=== PATIENT | male | born 1950 | race Caucasian/White ===

== ENCOUNTER → 2023-11-08 10:02 | Outpatient (BNV) | payer MEDICARE, BC, SELFPAY | PROVIDERS: PCP Internal Medicine; Visit Provider Internal Medicine Medical Oncology | DX: D64.9 Anemia, unspecified (principal) | CPT/HCPCS: 99204; 99213 ==

== ENCOUNTER 2024-08-06 09:51 | Outpatient (REF) | payer MEDICARE, BC, SELFPAY ==
[2024-08-06 10:10] LABS: MANUAL DIFF FLAG NO
[2024-08-06 10:28] LABS: Basophils Percent Auto 0.3 % (0-2); Eosinophils Percent Auto 0.6 % (0-4); Hemoglobin 11.8 g/dl (14.0-18.0); Imm Gran Abs Auto 0.07 X10*3/uL (0.00-0.03); Lymphocytes Percent Auto 13.6 % (20-40); Mean Corpuscular HGB Conc 33.7 g/dl (31.0-36.0); Mean Corpuscular Hemoglobin 31.1 pg (27.0-33.0); Mean Corpuscular Volume 92.1 fL (80.0-98.0); Mean Platelet Volume 9.4 fL (9.4-12.4); Monocytes Percent Auto 14.4 % (2-11); Neutrophils Percent Auto 70.1 % (45-73); Platelet Count 257 X10*3/uL (160-400); White Blood Count 7.1 X10*3/uL (4.8-10.8)
[2024-08-06 10:33] LABS: INTERNATIONAL NORM RATIO 0.9 (0.9-1.1); Prothrombin Time 11.1 SEC (11.1-13.3)
[2024-08-06 11:01] LABS: Anion Gap 13 (12-20); Blood Urea Nitrogen 21 mg/dL (9-16); Calcium 9.3 mg/dL (8.4-10.2); Carbon Dioxide 24 mmol/L (22-29); Chloride 103 mmol/L (96-108); Estimated Glomerular Filt Rate 47; Glucose Random 98 mg/dL (60-115); Potassium 4.8 mmol/L (3.3-5.1); Sodium 135 mmol/L (135-145)
== END 2024-08-06 09:52 | disposition home or self-care (01) ==
LOC: HO.LAB 09:51
PROVIDERS: PCP Internal Medicine; Visit Provider Internal Medicine Clinical Cardiac Electrophysiology
DX: I47.10 Supraventricular tachycardia, unspecified (principal)
CPT/HCPCS: 36415; 80048; 85025; 85610

== ENCOUNTER 2025-11-05 09:44 | Outpatient (AMB) | payer MEDICARE, BC, SELFPAY ==
[2025-11-05 10:13] VITALS: BP 184/94; PULSE 71; TEMP 36.8; BMI 28.6
--- NOTE | 2025-11-05 10:13 | A.PHYSOV ---
Vital Signs 11/05/25 10:13 Height 5 ft 9 in Weight 194 lb BMI 28.6 BP 184/94 H Pulse 71 Temp 98.2 F Intake Visit Reasons: Left Lumbar TFE L5 Intake Note: Patient is a 75 year old male in office today for a Left L5 transforaminal epidural injection. 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) Social History (Updated 11/03/25 @ 12:22 by Dominique Resendez [place]) Household Members: Spouse Patient Tobacco Use Status: Former Tobacco user Tobacco use type: Cigarette Second Hand Smoke Exposure: No service: No Current occupational status: retired Physical Exam Vital Signs: Last Vital Signs Temp 98.2 F 11/05/25 10:13 Pulse 71 11/05/25 10:13 BP 184/94 H 11/05/25 10:13 BMI result Body Mass Index 28.6 Office Procedures Procedure Details: Procedure performed: Left L5 transforaminal epidural steroid injection Preop diagnosis: Lumbar radiculitis Postop diagnosis: The same Anesthesia: Local After informed consent was obtained, patient was placed on the procedure table in a prone position. Skin over lumbosacral area was prepped and draped in usual sterile manner. Left L5 pedicle was visualized utilizing fluoroscopy. 5 inch 22 gauge spinal needle was introduced percutaneously and advanced towards the pedicle at about 6 o'clock position. Once level of neural foramina was reached, needle placement was verified utilizing 3 cc of Omnipaque contrast solution. Excellent flow through the neural foramina and epidural spread was identified without evidence of vascular uptake. Total volume of 6 cc containing 2 cc of 1% lidocaine, 40 mg of triamcinolone and normal saline solution were injected after negative aspiration for blood and cerebrospinal fluid. Radiation exposure was documented in the chart. Lumbar transforaminal Epidural Steroid Inj- use with FL Gd: 57190 - Single Procedure code (CPT) selection complete Office Meds Kenalog 40 mg/mL suspension for injection Performing Provider: Cedric Ash DO Performing Location: [facility] Administered by: Cedric Ash DO on 11/05/25 10:32 Dose Route Admin Location Dispensed Lot Number Expiration Date [facility] [employer] 40 mg epidural 1 mL [address]-8 [employer] Total Dispensed Waste 1 mL 0 % lidocaine (PF) 10 mg/mL (1 %) injection solution Performing Provider: Cedric Ash DO Performing Location: [facility] Administered by: Cedric Ash DO on 11/05/25 10:32 Dose Route Admin Location Dispensed Lot Number Expiration Date [facility] [employer] 50 mg epidural 5 mL 33690-515-53 [employer] Total Dispensed Waste 5 mL 0 % Omnipaque 300 300 mg iodine/mL intravenous solution Performing Provider: Cedric Ash DO Performing Location: [facility] Administered by: Cedric Ash DO on 11/05/25 10:32 Dose Route Admin Location Dispensed Lot Number Expiration Date [facility] [employer] 3 mL epidural 10 mL [id number] [employer] Total Dispensed Waste 10 mL 70 % Assessment & Plan Assessment & Plan (1) Lumbar radiculitis: Code(s): M54.16 - Radiculopathy, lumbar region Category: Medical Plan: Procedure Plan Procedure Orders: Orders AMB Lumbar transforaminal Epidural Steroid Injection Today M54.16 - Radiculopathy, lumbar region FL Gd Lumbar Transforaminal In Today M54.16 - Radiculopathy, lumbar region Coding Level of Care Code Procedure Only Diagnoses Lumbar radiculitis M54.16 CPT Codes Lumbar transforaminal Epidural Steroid I - CPT TRANSFORM: 84486 - Single ([id number])
== END 2025-11-05 10:54 | disposition home or self-care (01) ==
LOC: HO.HPHYS 09:44
PROVIDERS: PCP Internal Medicine; Visit Provider Physical Medicine & Rehabilitation
DX: M54.16 Radiculopathy, lumbar region (principal)
CPT/HCPCS: 64483

== ENCOUNTER 2025-11-05 09:44 | Outpatient (REF) | payer MEDICARE, BC, SELFPAY | END 2025-11-05 09:45 | disposition home or self-care (01) | LOC: HO.HPHYSR 09:44 | PROVIDERS: PCP Internal Medicine; Visit Provider Physical Medicine & Rehabilitation | DX: M54.16 Radiculopathy, lumbar region (principal) | CPT/HCPCS: 64483; J2003; J3301; Q9967 ==